=== PATIENT | male | born 1960 | race Caucasian/White ===

== ENCOUNTER → 2017-02-06 | Outpatient (CLI) | payer OTHER ==
--- NOTE | 2017-02-07 12:58 | CONS ---
CONSULTATION Date of Consultation: DATE OF SERVICE: 02/06/2017 56-year-old gentleman who has been evaluated in the Sleep Center for obstructive sleep apnea-hypopnea syndrome. HISTORY OF PRESENT ILLNESS/SLEEP WAKE EVALUATION: The patient has been diagnosed with obstructive sleep apnea in 2002 in [facility]. He was started on treatment with CPAP and until now he is using his CPAP equipment. At the same time even while using his CPAP, he developed some sleepiness. His [place] Sleepiness Scale increased to 11 and patient changed weight on about 30 pounds down since his previous titration. SLEEP SCHEDULE: Sleep schedule from around 11:00 p.m. to 5:30 a.m. basically 7 days a week. FALLING ASLEEP: No problem usually falling asleep although he does have TV set in bedroom. DURING THE DAY/SLEEP WAKE EVALUATION: [place] sleepiness Scale is 11. PAST MEDICAL HISTORY: Positive for hypertension, diabetes, COPD, and history of sinusitis and mild diverticulitis by results of colonoscopy. PAST SURGICAL HISTORY: Appendectomy, vasectomy and carpal tunnel syndrome surgery. MEDICATIONS: 1. Janumet. 2. Metoprolol. 3. Glipizide. 4. . 5. Montelukast. 6. Pravastatin. 7. Tamsulosin. 8. Omeprazole. 9. Fluticasone. 10. . 11.Aspirin. 12.Vitamins. 13.Nasacort. ALLERGY: IODINE. . SOCIAL HISTORY: Negative for smoking. Alcohol consumption occasional. FAMILY HISTORY: Hypertension and stroke, arthritis, asthma, sinus headache, bronchitis, cancer, acid reflux, diabetes. REVIEW OF SYSTEMS: Some sleepiness during the day at the present time. PHYSICAL EXAM: 56-year-old, gentleman in no distress. BP 121/69, HR 80, RR 16. Height 5 feet 10 inches, weight 239. BMI 34.2, neck 16.5 inches in circumferences. Temp is 98.4. Oxygen saturation on room air 97%. Oropharynx low position of soft palate. NECK: Supple. No JVD. Thyroid is not palpable. LUNGS: Clear to auscultation and percussion. Good air exchange. No wheezing or rhonchi. HEART: S1, S2 regular. No murmurs, gallops or rubs. ABDOMEN: Slightly obese. Soft, nontender. Bowel sounds are preset. No organomegaly appreciated. EXTREMITIES: No clubbing or cyanosis. CLEARANCE REPRESENTATIVE: Awake, alert and oriented times three. Cranial nerves 2 to 7 intact. There is no fasciculation or atrophy noted. No focal deficits observed. IMPRESSION: 1. Obstructive sleep apnea-hypopnea syndrome diagnosed in 2002. The patient continued to use his CPAP equipment, but developed sleepiness. He changed his weight since 2002. Evaluation of oropharynx showed low position of soft palate. [place] sleepiness scale is 11. 2. Hypertension. 3. Diabetes mellitus. 4. Obesity. 5. Chronic obstructive pulmonary disease. 6. Acid reflux. 7. History of sinusitis. 8. Mild diverticulitis by results of recent colonoscopy. 9. Status post appendectomy. 10.Status post vasectomy. 11.Status post carpal tunnel syndrome surgery on the right hand. PLAN: 1. We will get information about previous sleep studies. 2. Repeat the CPAP titration for evaluation of effective CPAP pressure at the present time. 3. Losing weight. 4. Sleep hygiene with regular time in bed for at least eight hours. 5. No driving if patient feels any sleepiness. Patient is aware of civil and criminal liability for unsafe driving. 6. Prescription for all necessary CPAP supplies. Thank you very much for allowing me to participate in management of your patient. Sincerely, Med Whyte MD, PhD, FAASM Diplomat of [place] Board of Sleep Medicine. Sleep Medicine Board by [place] [employer] Specialities [place] Board of Internal Medicine Light Armored Reconnaissance Officer of [facility] [place] MMODL / MALAN: [id number] /
== END | disposition home or self-care (01) ==
LOC: SLEEP 16:42
PROVIDERS: ATTEND Internal Medicine
DX: G47.33 Obstructive sleep apnea (adult) (pediatric) (principal); I10 Essential (primary) hypertension; E11.9 Type 2 diabetes mellitus without complications; E66.9 Obesity, unspecified; J44.9 Chronic obstructive pulmonary disease, unspecified; K21.9 Gastro-esophageal reflux disease without esophagitis; K57.92 Diverticulitis of intestine, part unspecified, without perforation or abscess without bleeding; Z98.890 Other specified postprocedural states; Z79.899 Other long term (current) drug therapy; Z79.82 Long term (current) use of aspirin; Z91.048 Other nonmedicinal substance allergy status
CPT/HCPCS: 99211

== ENCOUNTER → 2018-05-14 | Outpatient (CLI) | payer OTHER ==
--- NOTE | 2018-05-14 14:44 | SFUN ---
SLEEP CENTER FOLLOW UP NOTE DATE OF SERVICE: 05/14/2018 A 57-year-old gentleman who has been followed in the Sleep Center for treatment of obstructive sleep apnea-hypopnea syndrome. Patient continued to use his CPAP equipment every night for the whole night without significant problems. He is using chinstrap, without chinstrap he may open his mouth and then he may develop some dryness in the mouth. [place] Sleepiness Scale today is 5, which is totally normal. I checked patient's CPAP unit. CPAP pressure is 12 cm of water. Usage is every night and 24/30 nights more than 4 hours. Average usage 5.5 hours. Leak is 18 L/minute which is borderline. Apnea-hypopnea index only 0.6, which is absolutely in perfect range. MEDICATIONS: Janumet, metoprolol, glipizide, montelukast, pravastatin, tamsulosin, omeprazole, aspirin, Sil, Cetirizine, Nasacort. PHYSICAL EXAM: Patient in no distress, BP 115/72, HR 80, RR 16, height 5, 10, weight 242, body mass index 34.7. Patient lost 2 pounds comparing to the previous visit, temperature 99.1, oxygen saturation at room air 96% oropharynx extremely low position of soft palate, Mallampati 4. ABDOMEN: Slightly diabetes. Neck Supple, no JVD. Thyroid is not palpable. LUNGS Clear to percussion and to auscultation. Good air exchange. No wheezing or rhonchi. HEART S1, S2 regular. No murmurs, gallops, or rubs. EXTREMITIES No clubbing or cyanosis. SENIOR OPERATOR Awake, alert, and oriented X3. Cranial nerves 2 to 7 intact. There is no fasciculation or atrophy. noted. No focal deficits observed. IMPRESSION: 1. Obstructive sleep apnea-hypopnea syndrome. Patient demonstrated great compliance with treatment, benefitting from treatment. 2. Hypertension. 3. Diabetes mellitus. 4. Acid reflux. 5. Hyperlipidemia. 6. History of sinus problems. PLAN: 1. Continue treatment with CPAP every night for the whole night. 2. Prescription for all necessary CPAP supplies including mask, tube, filters. 3. Continue losing weight. 4. Sleep hygiene with regular time in bed for at least 8 hours. 5. No driving if feeling sleepiness. 6. Followup visit in 1 year or earlier if patient has any problems. Thank you very much for allowing me to participate in the management of your patient. Sincerely, Med Whyte MD, PhD, FAASM Diplomat of [place] Board of Medical Specialties [place] Board of Internal Medicine Printed Circuit Board Assembly Repairer of [facility] [place] SAHIL / JEREMY: [id number] /
== END | disposition home or self-care (01) ==
LOC: SLEEP 13:08
PROVIDERS: ATTEND Internal Medicine
DX: G47.33 Obstructive sleep apnea (adult) (pediatric) (principal); I10 Essential (primary) hypertension; E11.9 Type 2 diabetes mellitus without complications; K21.9 Gastro-esophageal reflux disease without esophagitis; E78.5 Hyperlipidemia, unspecified; Z87.09 Personal history of other diseases of the respiratory system; Z99.89 Dependence on other enabling machines and devices; Z79.899 Other long term (current) drug therapy; Z79.82 Long term (current) use of aspirin

== ENCOUNTER → 2019-05-27 | Outpatient (CLI) | payer OTHER ==
--- NOTE | 2019-05-27 12:57 | SFUN ---
SLEEP CENTER FOLLOW UP NOTE DATE OF SERVICE: 05/27/2019. A 58-year-old gentleman has been followed in sleep center for treatment of obstructive sleep apnea-hypopnea syndrome. The patient continued to use CPAP equipment every night for the whole night. Take it with him if he is traveling anywhere. Very rare episodes of snoring during the night when his mask goes possibly to the side. The patient is using a full-face mask. [place] Sleepiness Scale today is 9. I checked CPAP unit. CPAP pressure is 12 cm of water. Usage is 29 out of 30 nights and 28 out of 30 nights for more than 4 hours with average usage 6.2 hours per night. Leak is only 4 L/minute. Apnea-hypopnea index only 0.5 which is absolutely perfect. MEDICATIONS: Metoprolol, Janumet, glipizide, montelukast, tamsulosin, pravastatin, omeprazole, aspirin, Sil, , Nasacort. PHYSICAL EXAMINATION: During physical exam, patient in no distress. VITAL SIGNS: BP 122/75, HR 77, RR 16, height 5 feet 10 inches, weight 245.4, temperature 98.7, oxygen saturation at room air 97%. HEENT: PERRLA, EOMI. Oropharynx extremely low soft palate, Mallampati 4. NECK: Supple, no JVD. Thyroid is not palpable. LUNGS: Clear to percussion and to auscultation. Good air exchange. No wheezing or rhonchi. HEART: S1, S2 regular. No murmurs, gallops, or rubs. ABDOMEN: Slightly obese. EXTREMITIES: No clubbing or cyanosis. EMPLOYMENT DIRECTOR: Awake, alert, and oriented X3. Cranial nerves 2 to 7 intact. There is no fasciculation or atrophy. noted. No focal deficits observed. IMPRESSION: 1. Obstructive sleep apnea-hypopnea syndrome. Patient demonstrated great compliance with treatment, benefitting from treatment. 2. Hypertension. 3. Diabetes mellitus. 4. Acid reflux. 5. Hyperlipidemia. 6. History of sinus problem. PLAN: 1. Patient will continue to use CPAP equipment every night for the whole night. 2. Losing weight. Patient increased his weight 3 pounds since previous visit. 3. Sleep hygiene with regular time in bed for at least 8 hours. 4. No driving if feeling any sleepiness. 5. I will maintain all necessary prescriptions for CPAP including mask, tube, filters. 6. Precautions related to driving. No driving if feeling sleepiness. 7. Follow-up visit in 1 year or earlier if patient has any problems. Thank you very much for allowing me to participate in management of your patient. Sincerely, Med Whyte MD, PhD, FAASM Diplomat of [place] [employer] Specialties [place] [employer] Internal Medicine Manager Housekeeping of [facility] [place] MMODL / MALAN: [id number] /
== END | disposition home or self-care (01) ==
LOC: SLEEP 11:43
PROVIDERS: ATTEND Internal Medicine
DX: G47.33 Obstructive sleep apnea (adult) (pediatric) (principal); I10 Essential (primary) hypertension; E11.9 Type 2 diabetes mellitus without complications; K21.9 Gastro-esophageal reflux disease without esophagitis; E78.5 Hyperlipidemia, unspecified; Z85.22 Personal history of malignant neoplasm of nasal cavities, middle ear, and accessory sinuses; Z99.89 Dependence on other enabling machines and devices; Z79.82 Long term (current) use of aspirin; Z79.84 Long term (current) use of oral hypoglycemic drugs; Z79.899 Other long term (current) drug therapy

== ENCOUNTER → 2020-05-25 | Outpatient (CLI) | payer OTHER ==
--- NOTE | 2020-05-25 11:52 | SFUN ---
SLEEP CENTER FOLLOW UP NOTE DATE OF SERVICE: 05/25/2020 A 59-year-old gentleman who has been followed in the Sleep Center for treatment of obstructive sleep apnea-hypopnea syndrome. The patient successfully continues to use CPAP equipment every night for the whole night. He does not snore. Sleeps well, no significant excessive daytime sleepiness. [place] Sleepiness Scale is 5. I checked patient's CPAP unit. CPAP pressure is 12 cm of water, usage is 30/30 nights for more than 4 hours. Average usage is 7.4 hours per night. Leak is 12 L/minutes which is borderline. Apnea-hypopnea index is 0.7, which is perfect. PRESENT TIME MEDICATIONS: Janumet 50 mg and 100 mg twice daily, metoprolol 50 mg once a day. Glipizide 10 mg twice a day. 300 mg once a day. Montelukast 10 mg once a day, pravastatin 40 mg once a day. Tamsulosin 0.4 mg once a day. Omeprazole DR 20 mg once a day. Everlasting nasal solution spray once a day, aspirin 325 mg once a day, Sil 24 hours 180 mg once a day. , Mevacor 24 hour 2 sprays once a day, psoriasis shampoo daily. PHYSICAL EXAM: A gentleman in no distress, BP 122/74, HR 76, RR 15, height 5, 10, weight 242, BMI 34, temperature 98.9, oxygen saturation 95%. OROPHARYNX: Low position of soft palate. Mallampati 4. ABDOMEN: Slightly obese. NECK: Supple, no JVD. Thyroid is not palpable. LUNGS: Clear to percussion and to auscultation. Good air exchange. No wheezing or rhonchi. HEART: S1, S2 regular. No murmurs, gallops, or rubs. EXTREMITIES: No clubbing or cyanosis. VENEER SAMPLE MAKER: Awake, alert, and oriented X3. Cranial nerves 2 to 7 intact. There is no fasciculation or atrophy. noted. No focal deficits observed. IMPRESSION: 1. Obstructive sleep apnea-hypopnea syndrome. Patient demonstrated 100% compliance with treatment, benefitting from treatment. 2. Hypertension. 3. Diabetes mellitus. 4. Acid reflux. 5. Hyperlipidemia. 6. History of sinus problems. PLAN: 1. Patient will continue to use PAP equipment every night for the whole night. 2. Sleep hygiene with regular time in bed for at least 7-1/2 to 8 hours. 3. Precautions related to driving. No driving if feeling sleepiness. 4. I will maintain all necessary prescription for PAP supplies including mask, tube, filters. 5. Watching weight. 6. No driving if feeling sleepiness. 7. Followup visit in 6 months or earlier if patient has any problems. Thank you very much for allowing me to participate in the management of your patient. Sincerely, Med Whyte MD, PhD, FAASM Diplomat of [place] Of [place] Board of Medical Specialties Citizen [place] Board of Internal Medicine Television Presenter of [facility] [place] MMODL / IJN: [id number] /
== END | disposition home or self-care (01) ==
LOC: SLEEP 10:13
PROVIDERS: ATTEND Internal Medicine
DX: G47.33 Obstructive sleep apnea (adult) (pediatric) (principal); I10 Essential (primary) hypertension; E11.9 Type 2 diabetes mellitus without complications; K21.9 Gastro-esophageal reflux disease without esophagitis; E78.5 Hyperlipidemia, unspecified; Z87.09 Personal history of other diseases of the respiratory system; Z99.89 Dependence on other enabling machines and devices

== ENCOUNTER → 2020-12-07 | Outpatient (CLI) | payer OTHER ==
--- NOTE | 2020-12-07 21:15 | SFUN ---
SLEEP CENTER FOLLOW UP NOTE DATE OF SERVICE: 12/07/2020. 60-year-old gentleman has been followed in Sleep Center for treatment of obstructive sleep apnea-hypopnea syndrome. The patient successfully continues to use his CPAP equipment every night for the whole night. No snoring according to his . He sleeps well, feels better during the day. [place] Sleepiness Scale today is 9, which is in normal range. I checked his CPAP unit, pressure is 12 cm of water, usage 30/30 nights for more than 4 hours. Average usage is 7.1 hours per night. Leak is 14 L/minute which is acceptable. Apnea-hypopnea index 0.9, which is normal. The patient started to use insulin for diabetes. He also increased his weight around 12 pounds. MEDICATIONS: Janumet 50 mg 100 mg twice a day, metoprolol 50 mg once a day. Irbesartan 300 mg once a day. Montelukast 10 mg once a day. Pravastatin 40 mg once a day. Tamsulosin 0.4 mg once a day. Omeprazole 20 mg once a day, Azelastine nasal solution spray once daily, insulin, vitamins supplements. Nasacort 2 sprays once a day, and insulin, the patient started Lantus 40 units daily at bedtime and NovoLog 10 units at supper. PHYSICAL EXAMINATION: GENERAL: Patient in no distress. BP 127/56, HR 74, RR 15, height 5 feet 10 inches, weight 254, body mass index 36.4. Patient increased his weight 12 pounds since previous visit. Temperature 98.4, oxygen saturation at room air 97%. HEENT: Oropharynx low position of soft palate. Mallampati IV. NECK: Supple, no JVD. Thyroid is not palpable. LUNGS: Clear to percussion and to auscultation. Good air exchange. No wheezing or rhonchi. HEART: S1, S2 regular. No murmurs, gallops, or rubs. ABDOMEN: Obese. Soft and nontender. Bowel sounds are present. No organomegaly appreciated. EXTREMITIES: No clubbing or cyanosis. TYING IN MACHINE OPERATOR: Awake, alert, and oriented X3. Cranial nerves 2 to 7 intact. There is no fasciculation or atrophy. noted. No focal deficits observed. IMPRESSION: 1. Obstructive sleep apnea-hypopnea syndrome. The patient demonstrated 100 complex percent compliance with treatment benefitting from treatment. 2. Hypertension. 3. Diabetes mellitus. 4. Acid reflux. 5. Anxiety. 6. Hyperlipidemia. 7. History of sinus problems. 8. Status post hemorrhoidectomy. 9. Status post carpal tunnel syndrome surgical treatment. 10.Status post vasectomy. 11.Status post appendectomy. PLAN: 1. Patient will continue to use PAP equipment every night for the whole night. 2. Sleep hygiene with regular time in bed for at least 7-1/2 to 8 hours. 3. Precautions related to driving. No driving if feeling sleepiness. 4. I will maintain all necessary prescription for PAP supplies including mask, tube, filters. 5. Watching weight. 6. Follow-up visit in 6 months or earlier if patient has any problems. Thank you very much for allowing me to participate in the management of your patient. Sincerely, Med Whyte MD, PhD, FAASM Diplomat of [place] Board of Medical Specialties English Board of Internal Medicine Engineering Librarian of [facility] [place] MMODL / IJN: [id number] /
== END ==
LOC: SLEEP 10:33
PROVIDERS: ATTEND Internal Medicine
DX: G47.33 Obstructive sleep apnea (adult) (pediatric) (principal); I10 Essential (primary) hypertension; E11.9 Type 2 diabetes mellitus without complications; K21.9 Gastro-esophageal reflux disease without esophagitis; F41.9 Anxiety disorder, unspecified; E78.5 Hyperlipidemia, unspecified; Z90.49 Acquired absence of other specified parts of digestive tract; Z98.52 Vasectomy status; Z98.890 Other specified postprocedural states; Z87.09 Personal history of other diseases of the respiratory system; Z79.4 Long term (current) use of insulin; Z79.899 Other long term (current) drug therapy

== ENCOUNTER → 2023-01-09 | Outpatient (CLI) | payer OTHER ==
--- NOTE | 2023-01-09 16:17 | P.PN ---
Subjective DATE: 01/09/2023 FOLLOW UP VISIT. Patient with obstructive sleep apnea hypopnea syndrome return to sleep center for follow-up visit. Information from previous visit have been reviewed. Patient is using PAP equipment every night for the whole night, getting PAP supplies in time. The patient does not have significant problems with the mask, PAP unit and humidification. [place] sleepiness scale is 9, which is borderline. I checked information from PAP unit. PAP unit pressure 12 cm H2O. Usage is 100 % for more then 4 hours, average 6.7 hours per night. Leak is 17 l/m, which is in acceptable range. Apnea Hypopnea Index is 0.4, which is normal. MEDICATIONS:1. Metformin 500 mg 3 tablets a day 2. Metoprolol 50 mg once a day 3. Singulair 10 mg once a day 4. Pravastatin 40 mg once a day 5. Omeprazole 20 mg once a day 6. Flomax 0.4 mg once a day 7. Trulicity 1.5 mg once a day During physical exam: GENERAL: A pleasant patient without any distress. VITAL SIGNS: BP 151/71, HR 74, RR 18, weight 254.6, temperature 98.5, oxygen saturation at room air 98 % . HEENT: PERRLA, EOMI.low position of soft palate, Mallapati 4 . NECK: Supple. No JVD. LUNGS: Clear to percussion and to auscultation. Good air exchange. No wheezing or rhonchi. HEART: S1, S2 regular. ABDOMEN: Soft and nontender. Slightly obese EXTREMITIES: No clubbing or cyanosis. FURNACE ATTENDANT: Awake, alert, and oriented x3. No focal deficit. Impressions: 1. Obstructive sleep apnea-hypopnea syndrome. Patient demonstrated great compliance with treatment, benefiting from treatment. 2. Hypertension. 3. Diabetes mellitus. 4. Acid reflux. 5. Hyperlipidemia. 6. History of sinus problems. 7. Status post hemorrhoidectomy. 8. Status post was ectomy. 9. Status post surgical treatment for carpal tunnel syndrome. 10. Obesity. Plan: 1. Continue using PAP equipment every night for the whole night. 2. To change air filter at least 1-2 times per month. 3. PAP unit should stay lower then position of the head. 4. Advised patient to remove all remaining water from humidifier canister daily and make it dry after each usage. Refill canister with fresh distilled water bef ore each usage. 5. Sleep hygiene with regular time in bed for at least 8 hours. 6. Precautions related to driving. No driving if feel any sleepiness. 7. I will maintain prescription for PAP supplies including mask, tube, filters. 8. Follow up visit in 6 months or earlier if patient has any problems. 9. Watching and losing weight. Thank you very much for allowing me to participate in the management of your patient. Med Whyte MD, PhD, FAASM. Diplomat of [place] Board of Sleep Medicine, Sleep Medicine Board by [place] Board of Internal Medicine Telephone Order Clerk of [facility] [place]
== END ==
LOC: 3 N SLEEP 15:22
PROVIDERS: ATTEND Internal Medicine
DX: G47.33 Obstructive sleep apnea (adult) (pediatric) (principal); E11.9 Type 2 diabetes mellitus without complications; E66.9 Obesity, unspecified; E78.5 Hyperlipidemia, unspecified; I10 Essential (primary) hypertension; K21.9 Gastro-esophageal reflux disease without esophagitis; Z79.84 Long term (current) use of oral hypoglycemic drugs; Z79.85 Long-term (current) use of injectable non-insulin antidiabetic drugs; Z79.899 Other long term (current) drug therapy; Z99.89 Dependence on other enabling machines and devices
CPT/HCPCS: 99212

== ENCOUNTER → 2023-07-17 | Outpatient (CLI) | payer OTHER ==
--- NOTE | 2023-07-17 11:04 | P.PN ---
Subjective DATE: 07/17/2023 FOLLOW UP VISIT. Patient with obstructive sleep apnea hypopnea syndrome return to sleep center for follow-up visit. Information from previous visit have been reviewed. Patient is using PAP equipment every night for the whole night, getting PAP supplies in time. The patient does not have significant problems with the mask, PAP unit and humidification. [place] sleepiness scale is 9, which is borderline. I checked information from PAP unit. PAP unit pressure 12 cm H2O. Usage is 100 % for more then 4 hours, average 7.4 hours per night. Leak is 17 l/m, which is in acceptable range. Apnea Hypopnea Index is 0.6, which is normal. MEDICATIONS:1. Insulin 2. Metformin 500 mg 3 times a day 3. Januvia 4. Pravastatin 40 mg once a day 5. Flomax 0.4 mg once a day 6. Omeprazole 20 mg once a day 7. Ozempic once a week During physical exam: GENERAL: A pleasant patient without any distress. VITAL SIGNS: BP 164/79, HR 76, RR 16 , weight to 58.0, temperature 98.5, oxygen saturation at room air 96 % . HEENT: PERRLA, EOMI.low position of soft palate, Mallapati 4 . NECK: Supple. No JVD. LUNGS: Clear to percussion and to auscultation. Good air exchange. No wheezing or rhonchi. HEART: S1, S2 regular. ABDOMEN: Soft and nontender.[] EXTREMITIES: No clubbing or cyanosis. MERCHANDISING EXECUTION ASSOCIATE: Awake, alert, and oriented x3. No focal deficit. Impressions: 1. Obstructive sleep apnea-hypopnea syndrome. Patient demonstrated great compliance with treatment, benefiting from treatment. 2. Diabetes mellitus, previous hemoglobin A1c level according to patient around 8. 3. Hypertension. 4. Acid reflux. 5. Hyperlipidemia. 6. History of sinus problems. 7. Status post surgical treatment for carpal tunnel syndrome. Plan: 1. Continue using PAP equipment every night for the whole night. 2. To change air filter at least 1-2 times per month. 3. PAP unit should stay lower then position of the head. 4. Advised patient to remove all remaining water from humidifier canister daily and make it dry after each usage. Refill canister with fresh distilled water before each usage. 5. Sleep hygiene with regular time in bed for at least 8 hours. 6. Precautions related to driving. No driving if feel any sleepiness. 7. I will maintain prescription for PAP supplies including mask, tube, filters. 8. Follow up visit in 6 months or earlier if patient has any problems. 9. Watching weight. patient increased his weight on 4 pounds comparing to the previous visit Thank you very much for allowing me to participate in the management of your patient. Med Whyte MD, PhD, FAASM. Diplomat of [place] Board of Sleep Medicine, Sleep Medicine Board by [place] Board of Internal Medicine Finishing Technician of [facility] [place]
== END ==
LOC: 3 N SLEEP 10:17
PROVIDERS: ATTEND Internal Medicine
DX: G47.33 Obstructive sleep apnea (adult) (pediatric) (principal); E11.9 Type 2 diabetes mellitus without complications; I10 Essential (primary) hypertension; K21.9 Gastro-esophageal reflux disease without esophagitis; E78.5 Hyperlipidemia, unspecified; Z79.84 Long term (current) use of oral hypoglycemic drugs; Z79.4 Long term (current) use of insulin; Z99.89 Dependence on other enabling machines and devices; Z98.890 Other specified postprocedural states; Z79.85 Long-term (current) use of injectable non-insulin antidiabetic drugs; Z87.39 Personal history of other diseases of the musculoskeletal system and connective tissue; Z79.899 Other long term (current) drug therapy
CPT/HCPCS: 99212

== ENCOUNTER → 2024-02-12 | Outpatient (CLI) | payer OTHER ==
[2024-02-12 11:55] VITALS: BP 135/76; PULSE 77; RESP 16; TEMP 98.8
--- NOTE | 2024-02-12 12:17 | P.PROGSL ---
Subjective DATE: 02/12/2024 FOLLOW UP VISIT. Patient with obstructive sleep apnea hypopnea syndrome return to sleep center for follow-up visit. Information from previous visit have been reviewed. Patient is using PAP equipment every night for the whole night, getting PAP supplies in time. The patient does not have significant problems with the mask, PAP unit and humidification. [place] sleepiness scale is 7. I checked information from PAP unit. PAP unit pressure 12 cm H2O. Usage is 100% for more then 4 hours, average 7.3 hours per night. Leak is 20 l/m, which is in acceptable range. Apnea Hypopnea Index is 1.0, which is normal. MEDICATIONS have been reviewed, please see below. During physical exam: GENERAL: A pleasant patient without any distress. VITAL SIGNS: Please see below, weight is 256.6 lbs. HEENT: PERRLA, EOMI.low position of soft palate, Mallapati 4 . NECK: Supple. No JVD. LUNGS: Clear to percussion and to auscultation. Good air exchange. No wheezing or rhonchi. HEART: S1, S2 regular. ABDOMEN: Soft and nontender.[] EXTREMITIES: No clubbing or cyanosis. ENGINEER OF SYSTEM DEVELOPMENT: Awake, alert, and oriented x3. No focal deficit. Impressions: 1. Obstructive sleep apnea-hypopnea syndrome. Patient demonstrated great compliance with treatment, benefiting from treatment. 2. Mild obesity BMI 34.9. 3. Diabetes mellitus, last hemoglobin A1c according to patient around 9. 4. Acid reflux. 5. Hyperlipidemia. 6. Status post surgical treatment for carpal tunnel syndrome. 7. History of sinus problems. Plan: 1. Continue using PAP equipment every night for the whole night. 2. Sleep hygiene with regular time in bed for at least 7.5-8 hours 3. PAP unit should stay lower then position of the head. 4. Advised patient to remove all remaining water from humidifier canister daily and make it dry after each usage. Refill canister with fresh distilled water before each usage. 5. Watching and losing weight. 6. Precautions related to driving. No driving if feel any sleepiness. 7. I will maintain prescription for PAP supplies including mask, tube, filters. 8. Follow up visit in 6 months or earlier if patient has any problems. Thank you very much for allowing me to participate in the management of your patient. Med Whyte MD, PhD, FAASM. Diplomat of [place] Board of Sleep Medicine, Sleep Medicine Board by [place] Board of Internal Medicine Smokehouse Operator of [facility] [place] Objective - Vital Signs Vital Signs: Vital Signs Temp 98.8 F 02/12/24 11:52 Pulse 77 02/12/24 11:52 Resp 16 02/12/24 11:52 BP 135/76 02/12/24 11:52 Pulse Ox 94 L 02/12/24 11:52 FiO2 Intake & Output 02/11/24 02/12/24 02/12/24 18:59 06:59 18:59 Weight 116.12 kg Home Medications: Home Medications Medication Instructions Recorded Confirmed Type Azelastine HCl [Astepro] 02/12/24 History Insulin Aspart [NovoLOG] 2 - 12 units SQ DAILY 02/12/24 02/12/24 History Insulin Glargine,Hum.rec.anlog 0 units SQ DAILY 02/12/24 02/12/24 History [Lantus Solostar Pen] Irbesartan 300 mg PO 02/12/24 History Metoprolol Succinate [Toprol XL] 50 mg PO DAILY 02/12/24 02/12/24 History Montelukast [Singulair] 10 mg PO DAILY 02/12/24 02/12/24 History Omeprazole 20 mg PO 02/12/24 History Pravastatin Sodium [Pravachol] 40 mg PO DAILY 02/12/24 02/12/24 History Semaglutide [Ozempic] 1 mg SQ WEEKLY 02/12/24 02/12/24 History Tamsulosin HCl [Flomax] 0.4 mg PO DAILY 02/12/24 02/12/24 History metFORMIN HCL ER [Glucophage XR] 1,500 mg PO DAILY 02/12/24 02/12/24 History
== END ==
LOC: 3 N SLEEP 11:16
PROVIDERS: ATTEND Internal Medicine
CPT/HCPCS: 99212

== ENCOUNTER → 2024-09-16 | Outpatient (CLI) | payer MEDICARE, BC ==
[2024-09-16 10:58] VITALS: BP 128/77; PULSE 87; RESP 16; TEMP 98.3
--- NOTE | 2024-09-16 11:27 | P.PROGSL ---
Subjective DATE: 09/16/2024 FOLLOW UP VISIT. Patient with obstructive sleep apnea hypopnea syndrome return to sleep center for follow-up visit. Information from previous visit have been reviewed. Patient is using PAP equipment every night for the whole night, getting PAP supplies in time. The patient does not have significant problems with the mask, PAP unit and humidification. [place] sleepiness scale is 9, which is borderline. I checked information from PAP unit. PAP unit pressure 12 cm H2O. Usage is 100% for more then 4 hours, average 7.2 hours per night. Leak is increased to 46 l/m. Apnea Hypopnea Index is 1.1, which is normal. MEDICATIONS have been reviewed, please see below. During physical exam: GENERAL: A pleasant patient without any distress. VITAL SIGNS: Please see below, weight is 140.2 lbs. HEENT: PERRLA, EOMI.low position of soft palate, [place] 4 . NECK: Supple. No JVD. LUNGS: Clear to percussion and to auscultation. Good air exchange. No wheezing or rhonchi. HEART: S1, S2 regular. ABDOMEN: Soft and nontender. Obese EXTREMITIES: No clubbing or cyanosis. WELDING SETTER: Awake, alert, and oriented x3. No focal deficit. Impressions: 1. Obstructive sleep apnea-hypopnea syndrome. Patient demonstrated great compliance with treatment, benefiting from treatment. 2. Obesity, BMI 34.9, patient lost 16 pounds since previous visit. 3. Diabetes mellitus. 4. Acid reflux. 5. Hyperlipidemia. 6. Sinus problems. 7. Status post surgical treatment for carpal tunnel syndrome. Plan: 1. Continue using PAP equipment every night for the whole night. 2. Sleep hygiene with regular time in bed for at least 7.5-8 hours 3. PAP unit should stay lower then position of the head. 4. Advised patient to remove all remaining water from humidifier canister daily and make it dry after each usage. Refill canister with fresh distilled water before each usage. 5. Watching and continue losing weight. 6. Precautions related to driving. No driving if feel any sleepiness. 7. I will maintain prescription for PAP supplies including mask, tube, filters. 8. Follow up visit in 8 months or earlier if patient has any problems. Thank you very much for allowing me to participate in the management of your patient. Med Whyte MD, PhD, FAASM. Diplomat of [place] [employer], Sleep Medicine Board by [place] [employer] [facility] [place] Objective - Vital Signs Vital Signs: Vital Signs Temp 98.3 F 09/16/24 10:55 Pulse 87 09/16/24 10:55 Resp 16 09/16/24 10:55 BP 128/77 09/16/24 10:55 Pulse Ox 95 09/16/24 10:55 FiO2 Intake & Output 09/15/24 09/16/24 09/16/24 18:59 06:59 18:59 Weight 108.919 kg Home Medications: Home Medications Medication Instructions Recorded Confirmed Type Azelastine HCl [Astepro] 02/12/24 History Insulin Aspart [NovoLOG] 2 - 12 units SQ DAILY 02/12/24 02/12/24 History Insulin Glargine,Hum.rec.anlog 0 units SQ DAILY 02/12/24 02/12/24 History [Lantus Solostar Pen] Irbesartan 300 mg PO 02/12/24 History Metoprolol Succinate [Toprol XL] 50 mg PO DAILY 02/12/24 02/12/24 History Montelukast [Singulair] 10 mg PO DAILY 02/12/24 02/12/24 History Omeprazole 20 mg PO 02/12/24 History Pravastatin Sodium [Pravachol] 40 mg PO DAILY 02/12/24 02/12/24 History Semaglutide [Ozempic] 1 mg SQ WEEKLY 02/12/24 02/12/24 History Tamsulosin HCl [Flomax] 0.4 mg PO DAILY 02/12/24 02/12/24 History metFORMIN HCL ER [Glucophage XR] 1,500 mg PO DAILY 02/12/24 02/12/24 History
== END ==
LOC: 3 N SLEEP 10:40
PROVIDERS: ATTEND Internal Medicine
DX: G47.33 Obstructive sleep apnea (adult) (pediatric) (principal); E66.01 Morbid (severe) obesity due to excess calories; E11.9 Type 2 diabetes mellitus without complications; K21.9 Gastro-esophageal reflux disease without esophagitis; E78.5 Hyperlipidemia, unspecified; J34.9 Unspecified disorder of nose and nasal sinuses; Z68.34 Body mass index [BMI] 34.0-34.9, adult; Z86.69 Personal history of other diseases of the nervous system and sense organs; Z88.8 Allergy status to other drugs, medicaments and biological substances
CPT/HCPCS: 99212